=== PATIENT | male | born 2000 | race Caucasian/White ===

== ENCOUNTER 2021-08-08 19:42 | Inpatient (IN) | payer OTHER ==
[2021-08-08 17:30] VITALS: BMI 28.5
[2021-08-08] MEDS ORDERED: IBUPROFEN 400 MG TABLET (FP) PO PRN (21:39)
[2021-08-08] MEDS ORDERED: METHOCARBAMOL 500 MG TABLET PO PRN (21:39)
[2021-08-08] MEDS ORDERED: LOPERAMIDE HCL 2 MG CAPSULE PO PRN (21:39)
[2021-08-08] MEDS ORDERED: ACETAMINOPHEN 325 MG TABLET (FP) PO PRN ×2 (21:39)
[2021-08-08] MEDS ORDERED: P-EPHED 60MG/TRIPROLIDI 2.5MG TABLET PO PRN (21:39)
[2021-08-08] MEDS ORDERED: DICYCLOMINE HCL 10 MG CAPSULE PO PRN (21:39)
[2021-08-08] MEDS ORDERED: MAGNESIUM HYDROX 2400MG/30ML ORAL SUSPENSION 30 ML CUP PO PRN (21:39)
[2021-08-08] MEDS ORDERED: MELATONIN 5 MG TABLETS PO PRN (21:39)
[2021-08-08] MEDS ORDERED: BISMUTH SUBSALICYLATE 524 MG/30 ML PO PRN (21:39)
[2021-08-08] MEDS ORDERED: guaiFENesin 200 MG/10 ML 10 ML UNIT-DOSE CUPS PO PRN (21:39)
[2021-08-08] MEDS ORDERED: ONDANSETRON *ODT* 4 MG TABLET SL PRN (21:39)
[2021-08-08] MEDS ORDERED: MAGNESIUM CITRATE 300 ML BOTTLE PO PRN (21:39)
[2021-08-08] MEDS ORDERED: MAG HYDROX/AL HYDROX/SIMETH 30 ML UNIT-DOSE CUP PO PRN (21:39)
[2021-08-08] MEDS ORDERED: BENZOCAINE/MENTHOL (CHLORASEPTIC ) LOZENGE MM PRN (21:39)
[2021-08-08] MEDS ORDERED: hydrOXYzine PAMOATE 25 MG CAPSULE (FP) PO PRN (21:39)
[2021-08-08] MEDS ORDERED: ALBUTEROL SO4 HFA INHALER IH PRN (21:40)
[2021-08-09] MEDS ORDERED: ONDANSETRON *ODT* 4 MG TABLET ONE (00:03)
[2021-08-09] MEDS: THIAMINE HCL 100 MG TABLET (FP) PO SCH ×2 (00:32→22:39)
[2021-08-09] MEDS ORDERED: LOPERAMIDE HCL 2 MG CAPSULE ONE (06:23)
[2021-08-09] MEDS ORDERED: DICYCLOMINE HCL 10 MG CAPSULE ONE (06:25)
[2021-08-09] MEDS ORDERED: chlordiazePOXIDE HCL 25 MG CAPSULE PO PRN (07:26)
[2021-08-09] MEDS ORDERED: chlordiazePOXIDE HCL 25 MG CAPSULE PO ONE (07:27)
[2021-08-09] MEDS: PRENATAL VITAMINS W/ FOLIC ACID TABLET (FP) PO SCH (11:31)
[2021-08-09] MEDS: chlordiazePOXIDE HCL 25 MG CAPSULE PO SCH ×3 (11:35→22:40)
[2021-08-09 12:06] LABS: ALBUMIN 3.9 g/dl (3.4-5.0); BLOOD UREA NITROGEN 16.8 mg/dL (7-18); CALCIUM 9.1 mg/dL (8.5-10.1)
[2021-08-09 12:09] LABS: CREATININE 1.2 mg/dL (0.55-1.3)
[2021-08-09 12:10] LABS: HEMATOCRIT 45.5 % (35.4-49); HEMOGLOBIN 14.5 GM/dL (11.7-16.9); MCHC 31.9 g/dl (32.0-35.9); MEAN CELL VOLUME 87.6 fl (80-96); MEAN PLT VOLUME 7.8 fl (7.5-11.1); PLATELET COUNT 337 10^3/uL (134-434); RDW 14.2 % (11.9-15.9); WHITE BLOOD COUNT 11.1 K/mm3 (4.0-10.0)
[2021-08-09 12:11] LABS: BILIRUBIN,TOTAL 0.8 mg/dL (0.2-1); TOT PROT 7.3 g/dl (6.4-8.2)
[2021-08-10] MEDS: chlordiazePOXIDE HCL 25 MG CAPSULE PO SCH ×4 (06:13→22:42)
[2021-08-10] MEDS: PRENATAL VITAMINS W/ FOLIC ACID TABLET (FP) PO SCH (10:29)
[2021-08-10] MEDS: THIAMINE HCL 100 MG TABLET (FP) PO SCH (22:42)
[2021-08-11] MEDS: chlordiazePOXIDE HCL 25 MG CAPSULE PO SCH ×3 (05:57→18:17)
[2021-08-11] MEDS: PRENATAL VITAMINS W/ FOLIC ACID TABLET (FP) PO SCH (10:11)
[2021-08-11 18:21] VITALS: BP 109/66; PULSE 109; TEMP 97.3
[2021-08-12] MEDS ORDERED: chlordiazePOXIDE HCL 10 MG CAPSULE PO PRN
[2021-08-12] MEDS ORDERED: chlordiazePOXIDE HCL 10 MG CAPSULE PO SCH (05:00)
[2021-08-12 16:08] LABS: SARS-CoV-2 NAA Not Detected (Not Detected)
[2021-08-13] MEDS ORDERED: chlordiazePOXIDE HCL 10 MG CAPSULE PO SCH (05:00)
[2021-08-14] MEDS ORDERED: chlordiazePOXIDE HCL 10 MG CAPSULE PO ONE (05:00)
== END 2021-08-11 18:05 | disposition home or self-care (01) | DRG 773 ==
LOC: YASAS 19:42 → Y3N 08-09 10:29
PROVIDERS: ADMIT Allergy & Immunology; ATTEND Surgery
PROC: HZ2ZZZZ Detoxification Services for Substance Abuse Treatment (ICD-10-PCS; principal; 2021-08-09)
DX: F10.230 Alcohol dependence with withdrawal, uncomplicated (principal); F11.10 Opioid abuse, uncomplicated; F14.10 Cocaine abuse, uncomplicated; F12.20 Cannabis dependence, uncomplicated; F17.210 Nicotine dependence, cigarettes, uncomplicated; F32.A Depression, unspecified; D72.829 Elevated white blood cell count, unspecified
CPT/HCPCS: 36415; 80053; 85027; 86780; 87811; C9803-CS; Q0162; U0003; U0005